=== PATIENT | male | born 1970 | race Two or more races ===

== ENCOUNTER 2017-04-13 23:30 | Emergency (ER) | payer OTHER ==
[~2017-04-13] VITALS: Ht 180.3 cm; Wt 92.0 kg
[~2017-04-13 23:30] MED LIST: BENADRYL25 M3 PO; DRAMAMINE LESS25 M1 PO; LEXAPRO10 M2 PO; MAALOX ADVANCE355 M2 PO; PEPCID20 M1 PO; PREDNISONE20 M1 PO; TYLENOL325 M2 PO; VALIUM5 M1 PO; VOLTAREN50 MG PO; ZYRTEC10 M7 PO
[2017-04-13] MEDS ORDERED: NO HOME MEDICATION XX (23:44)
[2017-04-14 00:35] LABS: BASO % 0.4 % (0-2); EOSINOPHIL ABSOLUTE COUNT 0.2 tho/cmm (0.0-0.7); HGB-HEMOGLOBIN 14.8 gm/dl (13.5-17.0); IMMATURE GRANULOCYTES ABSOLUTE 0.01 tho/cmm (0-0.03); IMMATURE GRANULOCYTES PERCENT 0.1 % (0-0.3); LYMPH % 41.2 % (20-45); LYMPH ABSOLUTE COUNT 3.2 tho/cmm (0.8-4.5); MCH (MEAN CORPUSCULAR HGB) 29.8 pg (28.0-32.0); MCHC MEAN CORPUSCULAR HGB CONC 36.1 % (32.0-36.0); MCV (MEAN CELL VOLUME) 82.5 fl (82.0-96.0); MEAN PLATELET VOLUME 10.1 cmc (9.4-12.4); MONO % 7.2 % (0-12); MONOCYTE ABSOLUTE COUNT 0.6 tho/cmm (0.0-1.2); NEUTROPHIL ABSOLUTE COUNT 3.9 tho/cmm (1.6-8.0); NEUTROPHIL-AUTOMATED 3.9 tho/cmm (1.6-8.0); NEUTROPHILS % 49.1 % (40-80); PLATELET COUNT 270 tho/cmm (150-450); RED BLOOD COUNT 4.97 mil/cmm (4.40-5.70); RED CELL DISTRIBUTION WIDTH 12.8 % (12.4-16.4); WHITE BLOOD COUNT 7.9 tho/cmm (4.0-10.0)
[2017-04-14 00:47] LABS: ALB/GLOB RATIO 0.9 (0.8-2.0); ALBUMIN 3.7 g/dl (3.5-5.0); ALKALINE PHOSPHATASE 91 U/L (33-138); ALT/SGPT 35 U/L (12-78); ANION GAP 10 mmol/L (0-20); AST/SGOT 27 U/L (10-40); BILIRUBIN,TOTAL 0.4 mg/dl (0.0-1.5); BLOOD UREA NITROGEN 13 mg/dl (6-24); CALCIUM 8.7 mg/dl (8.5-10.5); CARBON DIOXIDE-VENOUS 24 mmol/L (22-32); CHLORIDE 108 mmol/l (96-110); CREATININE 1.18 mg/dl (0.60-1.30); GLUCOSE 120 mg/dL (70-110); LIPASE 129 U/L (73-393); POTASSIUM 3.7 mmol/L (3.7-5.1); SODIUM 138 mmol/L (135-145); eGFR VALUE FOR BLACK 85 mL/Min
[2017-04-14] MEDS ORDERED: BENADRYL25 M3 PO (01:02)
[2017-04-14] MEDS ORDERED: PEPCID20 M1 PO (01:02)
== END 2017-04-14 01:17 ==
LOC: EDMED 23:30
PROVIDERS: Emergency Medicine
DX: T78.40XA Allergy, unspecified, initial encounter (principal); R10.9 Unspecified abdominal pain; K21.9 Gastro-esophageal reflux disease without esophagitis
CPT/HCPCS: J1200; J2765; J7030